=== PATIENT | male | born 1975 | race Two or more races ===

== ENCOUNTER 2017-10-10 11:05 | Emergency (ER) | payer MEDICAID, OTHER ==
[~2017-10-10] VITALS: Ht 172.7 cm; Wt 81.6 kg
[~2017-10-10 11:05] MED LIST: GABA300C OR; INSULIN GLARGINE; LISI10TA6 PO; METF-372 PO; SIMV-8 PO
[2017-10-10 12:46] VITALS: BP 143/81
== END 2017-10-10 13:15 | disposition home or self-care (01) ==
LOC: ER 11:05
DX: L84 Corns and callosities (principal); E11.9 Type 2 diabetes mellitus without complications; Z87.891 Personal history of nicotine dependence

== ENCOUNTER 2019-01-21 22:08 | Inpatient (IN) | payer SELFPAY ==
[~2019-01-21] VITALS: Ht 172.7 cm; Wt 215.0 kg
[2019-01-21 22:58] LABS: Basophils # (auto) 0.1 uL; Basophils % (auto) 1.3 % (0.0-2.0); Eosinophils # (auto) 0.6 uL; Eosinophils % (auto) 8.5 % (0.0-7.0); Hemoglobin 12.4 g/dL (13.5-17.5); Lymphocytes # (auto) 2.1 uL; Lymphocytes % (auto) 27.9 % (10.0-50.0); Mean Corpuscular Hemoglobin 30.2 pg (28.0-32.0); Mean Corpuscular Hgb Conc. 33.7 g/dL (32.0-36.0); Mean Corpuscular Volume 89.7 fL (80.0-100.0); Monocytes # (auto) 0.6 uL; Monocytes % (auto) 8.4 % (0.0-12.0); Neutrophils % (auto) 53.9 % (37.0-80.0); Platelet Count (auto) 291 10^3/uL (140-450); Red Blood Cells 4.12 10^6/uL (4.5-5.90); Red Cell Distribution Width 13.6 % (11.8-14.3); White Blood Cell 7.5 10^3/uL (4.4-10.8)
[2019-01-21 23:10] LABS: Potassium 3.4 mmol/L (3.5-5.1)
[2019-01-21 23:13] LABS: Albumin 1.8 g/dL (3.4-5.0); Calcium 7.2 mg/dL (8.5-10.1)
[2019-01-21 23:15] LABS: BUN/Creatinine Ratio 14.2
[2019-01-21 23:18] LABS: Bilirubin, Total 0.2 mg/dL (0.2-1.0); Total Protein 5.7 g/dL (6.4-8.2)
[2019-01-22 01:50] LABS: Urine Bacteria FEW /hpf (None Seen); Urine Blood 1+ /uL (Negative); Urine Hyaline Cast FEW /lpf (0 - 2); Urine Specific Gravity 1.014 (1.001-1.035); Urine WBC 1 /hpf (0 - 3)
[2019-01-22] MEDS ORDERED: ONDANSETRON HCL 4 MG/2 ML VIAL IV PRN (03:45)
[2019-01-22] MEDS ORDERED: ACETAMINOPHEN 500 MG TAB PO PRN (03:45)
[2019-01-22] MEDS ORDERED: HYDROcodone-ACET 5/325MG TAB PO PRN (03:45)
[2019-01-22] MEDS ORDERED: FUROSEMIDE 40 MG/4 ML VIAL IV ONE (03:45)
[2019-01-22 05:31] LABS: BUN/Creatinine Ratio 16.2; Calcium 7.5 mg/dL (8.5-10.1); Potassium 3.5 mmol/L (3.5-5.1)
[2019-01-22 05:59] LABS: Cholesterol 201 mg/dL (< 200); Triglycerides 112 mg/dL (< 150)
[2019-01-22] MEDS ORDERED: HEPARIN DRIP/D5W 100UNITS/ML 250 ML IV SCH (06:00)
[2019-01-22] MEDS ORDERED: MORPHINE SULF INJ 2 MG/ML SYRINGE 1ML IV PRN (06:00)
[2019-01-22] MEDS ORDERED: NITROGLYCERIN 0.4 MG SL TAB SL PRN (06:00)
[2019-01-22] MEDS ORDERED: HEPARIN SODIUM (PORCINE) 5000 UNITS/ML 1ML VIAL IV ONE ×2 (06:00→15:00)
[2019-01-22 06:01] LABS: HDL Cholesterol 43 mg/dL (40-59); LDL Cholesterol 148 mg/dL (< 100)
[2019-01-22 06:32] LABS: Basophils # (auto) 0.1 uL; Eosinophils # (auto) 0.6 uL; Eosinophils % (auto) 8.7 % (0.0-7.0); Hematocrit 33.3 % (41.0-53.0); Hemoglobin 11.3 g/dL (13.5-17.5); Lymphocytes # (auto) 2.2 uL; Lymphocytes % (auto) 29.4 % (10.0-50.0); Mean Corpuscular Hemoglobin 30.3 pg (28.0-32.0); Mean Corpuscular Hgb Conc. 33.9 g/dL (32.0-36.0); Mean Corpuscular Volume 89.3 fL (80.0-100.0); Monocytes # (auto) 0.6 uL; Monocytes % (auto) 8.1 % (0.0-12.0); Neutrophils # (auto) 3.9 uL; Neutrophils % (auto) 52.8 % (37.0-80.0); Platelet Count (auto) 253 10^3/uL (140-450); Red Blood Cells 3.73 10^6/uL (4.5-5.90); Red Cell Distribution Width 13.5 % (11.8-14.3); White Blood Cell 7.3 10^3/uL (4.4-10.8)
[2019-01-22 06:54] LABS: INR 0.96 (0.9-1.15); Partial Thromboplastin Time 27.5 sec (23.78-33.04); Prothrombin Time 10.3 sec (9.27-12.13)
[2019-01-22] MEDS ORDERED: HEPARIN SODIUM (PORCINE) 5000 UNITS/ML 1ML VIAL ONE (06:58)
[2019-01-22] MEDS ORDERED: FUROSEMIDE 40 MG/4 ML VIAL IV SCH ×2 (07:00→18:00)
[2019-01-22] MEDS ORDERED: LISINOPRIL 10 MG TAB PO SCH (10:00)
[2019-01-22] MEDS: ASPirin-EC 81 mg tab PO SCH (10:04)
[2019-01-22 14:38] LABS: INR 0.95 (0.9-1.15); Partial Thromboplastin Time 33.1 sec (23.78-33.04); Prothrombin Time 10.2 sec (9.27-12.13)
[2019-01-22] MEDS: HEPARIN DRIP/D5W 100UNITS/ML 250 ML IV SCH (15:00)
[2019-01-22] MEDS ORDERED: NITROGLYCERIN 50MG/250ML 250 ML IV SCH (17:00)
[2019-01-22] MEDS ORDERED: CLOPIDOGREL BISULFATE 75 MG TAB PO ONE (18:00)
[2019-01-22] MEDS ORDERED: BUMETANIDE (0.25MG/ML) 4 ML VIAL IV ONE (18:00)
[2019-01-22] MEDS: ISOSORBIDE DINITRATE 10 MG TAB PO SCH (18:17)
[2019-01-22] MEDS: hydrALAZINE HCL 25 MG TAB PO SCH (20:45)
[2019-01-22] MEDS: CARVEDILOL 12.5 MG TAB PO SCH (20:46)
[2019-01-22] MEDS: ATORVASTATIN 20 MG TAB PO SCH (20:46)
[2019-01-22 23:06] LABS: INR 0.98 (0.9-1.15); Partial Thromboplastin Time 69.9 sec (23.78-33.04); Prothrombin Time 10.5 sec (9.27-12.13)
[2019-01-23 06:05] LABS: Basophils # (auto) 0.1 uL; Basophils % (auto) 1.4 % (0.0-2.0); Eosinophils # (auto) 0.5 uL; Eosinophils % (auto) 7.6 % (0.0-7.0); Hematocrit 31.1 % (41.0-53.0); Hemoglobin 10.7 g/dL (13.5-17.5); Lymphocytes # (auto) 2.4 uL; Lymphocytes % (auto) 36.6 % (10.0-50.0); Mean Corpuscular Hemoglobin 30.6 pg (28.0-32.0); Mean Corpuscular Hgb Conc. 34.5 g/dL (32.0-36.0); Mean Corpuscular Volume 88.8 fL (80.0-100.0); Monocytes # (auto) 0.5 uL; Monocytes % (auto) 7.6 % (0.0-12.0); Neutrophils # (auto) 3.1 uL; Neutrophils % (auto) 46.8 % (37.0-80.0); Nucleated Red Blood Cells % 0.1 %; Platelet Count (auto) 244 10^3/uL (140-450); Red Cell Distribution Width 13.7 % (11.8-14.3); White Blood Cell 6.7 10^3/uL (4.4-10.8)
[2019-01-23] MEDS: ISOSORBIDE DINITRATE 10 MG TAB PO SCH ×3 (06:08→19:05)
[2019-01-23 06:21] LABS: INR 0.95 (0.9-1.15); Partial Thromboplastin Time 28.2 sec (23.78-33.04); Prothrombin Time 10.2 sec (9.27-12.13)
[2019-01-23 06:24] LABS: Potassium 3.1 mmol/L (3.5-5.1)
[2019-01-23 06:43] LABS: BUN/Creatinine Ratio 17.5; Calcium 7.3 mg/dL (8.5-10.1)
[2019-01-23 08:59] LABS: Alcohol, Urine < 3.0 mg/dL (0-5); Amphetamine Screen, Urine NEGATIVE (NEGATIVE); Barbiturate Scree,Urine NEGATIVE (NEGATIVE); Benzodiazephine Screen, Urine NEGATIVE (NEGATIVE); Cannabinoid Screen, Urine NEGATIVE (NEGATIVE); Cocaine Screen, Urine NEGATIVE (NEGATIVE); Opiate Scree,Urine NEGATIVE (NEGATIVE); Phencyclidine Screen, Urine NEGATIVE (NEGATIVE)
[2019-01-23] MEDS: HEPARIN DRIP/D5W 100UNITS/ML 250 ML IV SCH (09:46)
[2019-01-23] MEDS ORDERED: FUROSEMIDE 40 MG/4 ML VIAL IV ONE (10:00)
[2019-01-23] MEDS: CARVEDILOL 12.5 MG TAB PO SCH ×2 (10:26→22:53)
[2019-01-23] MEDS: FUROSEMIDE 20 MG/2 ML VIAL IV SCH (10:26)
[2019-01-23] MEDS: ASPirin-EC 81 mg tab PO SCH (10:27)
[2019-01-23] MEDS: hydrALAZINE HCL 25 MG TAB PO SCH ×2 (10:27→22:53)
[2019-01-23] MEDS ORDERED: POTASSIUM CHL 20 Meq TABLET PO ONE (12:30)
[2019-01-23] MEDS ORDERED: ENOXAPARIN SOD 40 MG/0.4 ML SYRINGE SC ONE (12:45)
[2019-01-23 14:31] LABS: INR 0.94 (0.9-1.15); Partial Thromboplastin Time 27.5 sec (23.78-33.04); Prothrombin Time 10.1 sec (9.27-12.13)
[2019-01-23 17:33] LABS: BUN/Creatinine Ratio 15.9; Calcium 7.4 mg/dL (8.5-10.1); Potassium 3.3 mmol/L (3.5-5.1)
[2019-01-23] MEDS: ATORVASTATIN 20 MG TAB PO SCH (22:53)
[2019-01-23 23:18] LABS: INR 0.94 (0.9-1.15); Partial Thromboplastin Time 27.9 sec (23.78-33.04); Prothrombin Time 10.1 sec (9.27-12.13)
[2019-01-24] MEDS ORDERED: HEPARIN SODIUM (PORCINE) 5000 UNITS/ML 1ML VIAL IV ONE (01:30)
[2019-01-24] MEDS ORDERED: HEPARIN DRIP/D5W 100UNITS/ML 250 ML IV SCH ×3 (01:30→08:30)
[2019-01-24] MEDS: ISOSORBIDE DINITRATE 10 MG TAB PO SCH ×3 (06:30→17:39)
[2019-01-24 07:22] LABS: Basophils # (auto) 0.1 uL; Eosinophils # (auto) 0.6 uL; Eosinophils % (auto) 8.6 % (0.0-7.0); Hemoglobin 11.2 g/dL (13.5-17.5); Lymphocytes # (auto) 2.7 uL; Lymphocytes % (auto) 37.1 % (10.0-50.0); Mean Corpuscular Hemoglobin 30.2 pg (28.0-32.0); Mean Corpuscular Hgb Conc. 33.9 g/dL (32.0-36.0); Mean Corpuscular Volume 88.9 fL (80.0-100.0); Monocytes # (auto) 0.7 uL; Monocytes % (auto) 9.4 % (0.0-12.0); Neutrophils # (auto) 3.2 uL; Neutrophils % (auto) 43.9 % (37.0-80.0); Platelet Count (auto) 248 10^3/uL (140-450); Red Blood Cells 3.71 10^6/uL (4.5-5.90); Red Cell Distribution Width 13.8 % (11.8-14.3); White Blood Cell 7.3 10^3/uL (4.4-10.8)
[2019-01-24 07:39] LABS: INR 0.96 (0.9-1.15); Partial Thromboplastin Time 44.8 sec (23.78-33.04); Prothrombin Time 10.3 sec (9.27-12.13)
[2019-01-24] MEDS ORDERED: DEXTROSE (50%) 50ML SYRG IV PRN (11:45)
[2019-01-24] MEDS: hydrALAZINE HCL 25 MG TAB PO SCH ×2 (12:01→23:10)
[2019-01-24] MEDS: FUROSEMIDE 20 MG/2 ML VIAL IV SCH (12:01)
[2019-01-24] MEDS: POTASSIUM CHL 20 Meq TABLET PO SCH ×2 (12:02→23:10)
[2019-01-24 15:27] VITALS: BP 154/81
[2019-01-24] MEDS ORDERED: INSDRIP IM (16:24)
[2019-01-24 16:30] VITALS: BP 163/86
[2019-01-24] MEDS: ACCU-CHEK COMFORT CURVE STRIP VI SCH ×2 (17:17→23:11)
[2019-01-24] MEDS: InsuLIN REG 1unit/0.01ml Soln (100units/ml) SC SCH ×2 (17:18→23:10)
[2019-01-24 21:30] VITALS: BP 156/87
[2019-01-24] MEDS: ENOXAPARIN SOD 100 MG/1 ML SYRINGE SC SCH (23:10)
[2019-01-24] MEDS: ATORVASTATIN 20 MG TAB PO SCH (23:10)
[2019-01-25 05:00] VITALS: BP 124/59
[2019-01-25] MEDS: ISOSORBIDE DINITRATE 10 MG TAB PO SCH ×2 (06:13→12:30)
[2019-01-25] MEDS: InsuLIN REG 1unit/0.01ml Soln (100units/ml) SC SCH ×2 (06:15→12:30)
[2019-01-25] MEDS: ACCU-CHEK COMFORT CURVE STRIP VI SCH ×2 (06:15→11:30)
[2019-01-25 06:22] LABS: Basophils # (auto) 0.1 uL; Basophils % (auto) 1.3 % (0.0-2.0); Eosinophils # (auto) 0.6 uL; Eosinophils % (auto) 8.9 % (0.0-7.0); Hematocrit 32.6 % (41.0-53.0); Hemoglobin 11.2 g/dL (13.5-17.5); Lymphocytes # (auto) 2.1 uL; Mean Corpuscular Hemoglobin 30.4 pg (28.0-32.0); Mean Corpuscular Hgb Conc. 34.3 g/dL (32.0-36.0); Mean Corpuscular Volume 88.8 fL (80.0-100.0); Monocytes # (auto) 0.6 uL; Monocytes % (auto) 9.2 % (0.0-12.0); Neutrophils # (auto) 3.3 uL; Neutrophils % (auto) 49.6 % (37.0-80.0); Platelet Count (auto) 259 10^3/uL (140-450); Red Blood Cells 3.67 10^6/uL (4.5-5.90); Red Cell Distribution Width 13.4 % (11.8-14.3); White Blood Cell 6.6 10^3/uL (4.4-10.8)
[2019-01-25 06:41] LABS: BUN/Creatinine Ratio 16.6; Potassium 3.2 mmol/L (3.5-5.1)
[2019-01-25 06:42] LABS: Calcium 7.5 mg/dL (8.5-10.1)
[2019-01-25] MEDS ORDERED: PNEUMOCOCCAL VACC POLYS 25 MCG/0.5 ML VIAL IM ONE (06:45)
[2019-01-25] MEDS: FUROSEMIDE 20 MG/2 ML VIAL IV SCH (09:55)
[2019-01-25] MEDS: POTASSIUM CHL 20 Meq TABLET PO SCH (09:56)
[2019-01-25] MEDS: ENOXAPARIN SOD 100 MG/1 ML SYRINGE SC SCH (09:56)
[2019-01-25] MEDS: hydrALAZINE HCL 25 MG TAB PO SCH (09:56)
[2019-01-25] MEDS ORDERED: ASPirin-EC 81 mg tab PO SCH (10:00)
[2019-01-25] MEDS ORDERED: POTASSIUM CHL 20 Meq TABLET PO ONE (11:00)
== END 2019-01-25 15:15 | disposition home or self-care (01) | DRG 280 ==
LOC: ER 22:13 → TELE 01-22 05:49 → CENTRAL 01-24 14:10 → TELE-CENTR 01-25 07:47
PROVIDERS: ADMIT Nurse Practitioner Family; ATTEND Internal Medicine Pulmonary Disease
DX: I21.4 Non-ST elevation (NSTEMI) myocardial infarction (principal); I50.41 Acute combined systolic (congestive) and diastolic (congestive) heart failure; I13.0 Hypertensive heart and chronic kidney disease with heart failure and stage 1 through stage 4 chronic kidney disease, or unspecified chronic kidney disease; E87.0 Hyperosmolality and hypernatremia; F19.20 Other psychoactive substance dependence, uncomplicated; Z68.45 Body mass index [BMI] 70 or greater, adult; N18.3 Chronic kidney disease, stage 3 (moderate); E11.22 Type 2 diabetes mellitus with diabetic chronic kidney disease; E66.9 Obesity, unspecified; F32.9 Major depressive disorder, single episode, unspecified; F41.9 Anxiety disorder, unspecified; Z79.4 Long term (current) use of insulin; Z79.899 Other long term (current) drug therapy; Z87.891 Personal history of nicotine dependence; Z91.19 Patient's noncompliance with other medical treatment and regimen; Z23 Encounter for immunization
CPT/HCPCS: 36415; 78582; 80048; 80053; 80061; 80307; 81001; 82962; 83036; 83735; 83880; 84484; 85025; 85379; 85610; 85730; 93005; 93306; 93970; 94761; 96374; G0378; J1815

== ENCOUNTER 2022-01-04 18:54 | Emergency (ER) | payer MEDICARE, MEDICAID ==
[~2022-01-04] VITALS: Ht 172.7 cm; Wt 79.4 kg
[~2022-01-04 18:54] MED LIST changes: +INSDRIP IM; +LISI-716 PO; -LISI10TA6 PO
[2022-01-04] MEDS ORDERED: LABETALOL HCL 5 MG/ML 4ML SYRINGE IV ONE (19:45)
[2022-01-04] MEDS ORDERED: ONDANSETRON HCL 4 MG/2 ML VIAL IV ONE (20:45)
[2022-01-04 21:33] VITALS: BP 166/62
== END 2022-01-04 21:54 | disposition home or self-care (01) ==
LOC: ER 18:54
DX: I10 Essential (primary) hypertension (principal); E11.9 Type 2 diabetes mellitus without complications; Z87.891 Personal history of nicotine dependence; Z79.899 Other long term (current) drug therapy
CPT/HCPCS: 70450; 96374; 96375; 99284; J2405; J3490